=== PATIENT | male | born 1965 | race African-American/Black ===

== ENCOUNTER → 2016-09-25 | Outpatient (CLI) | payer OTHER ==
[2016-09-25 08:36] LABS: BLOOD GAS BASE EXCESS 0.3 mmol/L (-2-2); BLOOD GAS CARBOXYHEMOGLOBIN 1.5 % (0-4); BLOOD GAS HCO3 25 mmol/L (22-26); BLOOD GAS METHEMOGLOBIN 0.9 % (0-2); BLOOD GAS O2 HGB SATURATION 95 % (90-100); BLOOD GAS OXYGEN CONTENT 18.2 Vol % (12.0-20.0); BLOOD GAS PCO2 41 mmHg (38-42); BLOOD GAS PO2 93 mmHg (61-120); BLOOD GAS TOTAL HGB 13.5 G/DL (12.0-16.0); CRITICAL VALUE NO; DRAW SITE RT RADIAL; FIO2 21 %; TEMP CORR TO 98.6
[2016-09-25 08:37] LABS: NUMBER OF ARTERIAL PUNCTURES 1; STAT NO; ULNAR PULSE PRESENT
--- NOTE | 2016-09-26 12:33 | RSPPFT ---
DATE OF PROCEDURE: 09/25/16 COMMENTS: Spirometry with FVC of 3.5 predicted 3.7, FEV1 of 3.2 predicted 2.8, FEV1/FVC ratio 89% predicted 74%. RV is increased to 2.4 predicted 1.6. IMPRESSION: On the basis of the above, patient's spirometry is within the predicted range. Mild air trapping is noticed. The flow volumes loops are not technically satisfactory. DLCO is within the predicted range.
== END ==
LOC: HRSP 07:43
PROVIDERS: ATTEND Internal Medicine Pulmonary Disease
DX: J45.909 Unspecified asthma, uncomplicated (principal)
CPT/HCPCS: 36600; 82805; 94060; 94620; 94726; 94729

== ENCOUNTER → 2017-11-06 | Day surgery (SDC) | payer OTHER ==
[~2017-11-06] VITALS: Ht 170.2 cm; Wt 71.5 kg
[~2017-11-06] MED LIST: ACETAMINOPHEN 1000 MG/100 ML 100 ML IV SCH; BUPIVACAINE/EPINEPHRINE 0.25% 50 ML VIAL ONE; BUPIVACAINE/EPINEPHRINE 0.5% PF 30 ML VIAL ONE; CHLORHEXIDINE GLUCONATE 2 % 1 PACK (2 CLOTHS) TOPICAL PRN; DEXAMETHASONE SOD PHOS 4 MG/ML VIAL IV ONE; DO NOT ADM ANY ANTICOAGULANT DRUGS PRN; LACTATED RINGER'S 1000 ML IV PRN; LIDOCAINE HCL 1% PF 5 ML SYRINGE OTHER ONE; METOPROLOL TARTRATE 25 MG TAB PO PRN; MIDAZOLAM HCL 2 MG/2 ML VIAL ONE; MORPHINE SULFATE 4 MG/ML INJ IV PUSH PRN; ONDANSETRON HCL 4 MG/2 ML VIAL IV ONE; ONDANSETRON HCL 4 MG/2 ML VIAL IV PUSH PRN; POVIDONE IODINE 5% (ANTISEPSIS KIT) 4 APPLICATIONS EACH NARE PRN; PROPOFOL 200 MG/20 ML AMP IV ONE; SODIUM CHLORID 0.9% 500 ML IV PRN; oxyCODONE/ACETAMINOPHEN 5 MG/325 MG TAB PO PRN
--- NOTE | 2017-11-06 08:18 | PD.OP ---
cc: Huber Jay MD Operative Report Date of Surgery: Nov 06, 2017 Preoperative Diagnosis: (1) Lipoma of chest wall Postoperative Diagnosis: (1) Lipoma of chest wall Procedure: excision lipoma of chest wall 6x6 cm Anesthesia: gen Surgeon: Huber Jay [employer] Generalist(s): Rory Ardon CFA Operation and Findings: EBL: 5 cc Operative findings: 6 x 6 cm well-circumscribed fatty tumor attached to the chest wall Procedure in detail: The patient was taken to the operating room and placed in the supine position. A bump was placed under the right chest. The right lateral chest was prepped and draped in usual sterile fashion. Surgical timeout was performed to verify correct patient procedure and site. Local anesthetic was injected in the skin and subcutaneous tissue overlying the right chest wall lipoma. A transverse incision was made. Dissection was carried out through thin subcutaneous layer with electrocautery and a large fatty tumor was encountered. The fatty tumor was from subcutaneous tissue with electrocautery and down to the level of the chest wall. It was from the chest wall muscles with electrocautery. The entire mass was removed. It was well-circumscribed and was approximately 6 x 6 cm. Hemostasis was achieved. The incision was closed with deep dermal simple interrupted 3-0 Vicryl suture and subcuticular 4-0 Monocryl as well as Dermabond. The patient tolerated the procedure well and was extubated and taken to PACU in stable condition. Huber Jay MD Nov 06, 2017 08:18
[2017-11-06 09:15] VITALS: BP 123/81; PULSE 80; RESP 16; TEMP 97.8; O2SAT 99
== END | disposition home or self-care (01) ==
LOC: HSDC 05:57
PROVIDERS: ATTEND Surgery
DX: D17.1 Benign lipomatous neoplasm of skin and subcutaneous tissue of trunk (principal)
CPT/HCPCS: 00400; 21552; 88304; J0131; J1100; J2250; J2405; J3010; J7120